=== PATIENT | female | born 1990 | race Caucasian/White ===

== ENCOUNTER 2017-04-29 07:32 | Outpatient (CLI) ==
--- NOTE | 2017-04-29 08:34 | DI ---
EXAM: Two views of the right hip HISTORY: Right hip pain. COMPARISON: None FINDINGS: There is no cortical irregularity or displaced fracture of the right hip. The joint space is intact and normal. There is no lytic or blastic lesion. The adjacent pelvis is unremarkable. Th e soft tissues are unremarkable. IMPRESSION: No acute abnormality or displaced fracture of the right hip.
== END 2017-04-29 07:33 | disposition home or self-care (01) ==
LOC: RAD 07:32
PROVIDERS: ATTEND Physician Assistant
DX: M25.551 Pain in right hip (principal)